=== PATIENT | female | born 1950 | race Caucasian/White ===

== ENCOUNTER 2018-03-01 16:12 | Emergency (ER) | payer OTHER ==
[~2018-03-01] VITALS: Ht 170.2 cm; Wt 108.9 kg
[2018-03-01] MEDS ORDERED: METFORMIN HYDRO25 GM (16:33)
[2018-03-01] MEDS ORDERED: ZOCOR5 MG (16:33)
[2018-03-01] MEDS ORDERED: CALAN SR120 MG (16:33)
[2018-03-01] MEDS ORDERED: SYNTHROID112 MCG (16:33)
== END 2018-03-01 21:04 | disposition home or self-care (01) ==
LOC: ER 16:12
DX: N21.8 Other lower urinary tract calculus (principal); M62.838 Other muscle spasm